=== PATIENT | female | born 1995 | race American Indian/Alaskan Native ===

== ENCOUNTER 2018-11-26 | Emergency (ER) | payer SELFPAY ==
[2018-11-26 00:56] LABS: Basophils # (Auto) 0.1 K/mm3 (0.0-0.1); Eosinophils # (Auto) 0.1 K/mm3 (0.0-0.4); Eosinophils % (Auto) 1.7 % (0.0-4.3); Hematocrit 35.7 % (30.3-42.9); Hemoglobin 11.9 gm/dl (10.1-14.3); Lymphocytes # (Auto) 2.6 K/mm3 (1.2-5.4); Lymphocytes % (Auto) 37.4 % (13.4-35.0); Mean Corpuscular HGB Conc 33 % (30-34); Mean Corpuscular Volume 80 fl (79-97); Monocytes # (Auto) 0.9 K/mm3 (0.0-0.8); Monocytes % (Auto) 13.6 % (0.0-7.3); Platelet Count 289 K/mm3 (140-440); Red Blood Count 4.49 M/mm3 (3.65-5.03); Red Cell Distribution Width 14.6 % (13.2-15.2)
[2018-11-26 01:02] LABS: Bilirubin,Urine NEG (Negative); Blood,Urine LG (Negative); Color,Urine Yellow (Yellow); Mucus,Urine 3+ /HPF
[2018-11-26 01:07] LABS: Albumin 4.5 g/dL (3.9-5); BUN/Creatinine Ratio 11; Blood Urea Nitrogen 10 mg/dL (7-17); Calcium 9.4 mg/dL (8.4-10.2); Hemolysis Index 8
[2018-11-26 01:13] LABS: Alanine Aminotransferase < 5 units/L (7-56)
[2018-11-26] MEDS ORDERED: REGLAN IV ONE (02:24)
[2018-11-26] MEDS ORDERED: TORADOL IV ONE (02:24)
[2018-11-26] MEDS ORDERED: BENADRYL IV ONE (02:24)
--- NOTE | 2018-11-26 02:29 | Emergency Department Report ---
ED Headache HPI - General Chief Complaint: Headache Stated Complaint: MIGRAINE, ABD PAIN, NAUSEA Time Seen by Provider: 11/26/18 02:23 - History of Present Illness Initial Comments: 23-year-old -[place] female presents to the emergency room for headache. Patient states that she has had a headache since 3 PM today. Patient reports light sensitivity and nausea and vomiting. Patient reports that she took Aleve approximately 3 PM without relief. She also complains of abdominal sharp pain. Patient reports her last menstrual. Was 10/18/2018. Timing/Duration: 4-6 hours, increasing Quality: moderate Recent Head Trauma: no recent headache/trauma Modifying Factors: improves with: exposure to light Associated Symptoms: nausea/vomiting Allergies/Adverse Reactions: Allergies No Known Allergies Allergy (Verified 11/26/18 00:06) Home Medications: Ambulatory Orders Butalb/Acetaminophen/Caffeine [Fioricet 50-300-40 mg CAP] 1 cap PO Q8HR PRN #12 cap 11/26/18 ED Review of Systems ROS: Stated complaint: MIGRAINE, ABD PAIN, NAUSEA Other details as noted in HPI Comment: All other systems reviewed and negative ED Past Medical Hx - Past Medical History Previous Medical History?: Yes Hx Headaches / Migraines: Yes Additional medical history: cyst to breast - Surgical History Past Surgical History?: Yes Hx Breast Surgery: Yes (biospy and tumor removal) - Social History Smoking Status: Never Smoker Substance Use Type: None - Medications Home Medications: Home Medications Medication Instructions Recorded Confirmed Last Taken Type Butalb/Acetaminophen/Caffeine 1 cap PO Q8HR PRN #12 cap 11/26/18 Unknown Rx [Fioricet 50-300-40 mg CAP] ED Physical Exam - General Limitations: No Limitations General appearance: alert, in no apparent distress - Head Head exam: Present: atraumatic, normocephalic - Eye Eye exam: Present: normal appearance - ENT ENT exam: Present: mucous membranes moist - Neck Neck exam: Present: normal inspection - Back Exam Back exam: Present: normal inspection - Neurological Exam Neurological exam: Present: alert, oriented X3, normal gait - Expanded Neurological Exam Expanded Patient oriented to: Present: person, place, time Speech: Present: fluid speech Cranial nerves: EOM's Intact: Normal, Gag Reflex: Normal, Tongue Deviation: Normal, Nystagmus: Normal, Facial Sensation: Normal, Facial Palsy with Forehead Movement: Normal, Facial Palsy without Forehead Movement: Normal Cerebellar function: Finger to Nose: Normal, Heel to Moreno: Normal, Romberg: Normal Upper motor neuron: Manuel Neglect: Normal Sensory exam: Upper Extremity Light Touch: Normal, Upper Extremity Pin Prick: Normal, Upper Extremity Temperature: Normal, UE 2 Point Discrimination: Normal, Lower Extremity Light Touch: Normal, Lower Extremity Pin Prick: Normal, Lower Extremity Temperature: Normal, LE 2 Point Discrimination: Normal Motor strength exam: RUE: 4, LUE: 4, RLE: 4, LLE: 4 - Psychiatric Psychiatric exam: Present: normal affect, normal mood - Skin Skin exam: Present: warm, dry, intact, normal color. Absent: rash ED Course Vital Signs 11/26/18 02:50 Respiratory 14 Rate - Reevaluation(s) Reevaluation #1: 11/26/18 04:08 Patient reports headache has improved. ED Medical Decision Making - Lab Data Result diagrams: 11/26/18 00:34 11/26/18 00:34 Critical care attestation.: If time is entered above; I have spent that time in minutes in the direct care of this critically ill patient, excluding procedure time. ED Disposition Clinical Impression: Migraine Qualifiers: Migraine type: unspecified Status migrainosus presence: without status migrainosus Intractability: not intractable Qualified Code(s): G43.909 - Stefan hughes, unspecified, not intractable, without status migrainosus Disposition: DC-01 TO HOME OR SELFCARE Is pt being admited?: No Does the pt Need Aspirin: No Condition: Stable Instructions: Migraine Headache (ED) Additional Instructions: Take migraine medication as needed. Is important free to follow up with the neurologist I have listed one below for your convenience. Prescriptions: Butalb/Acetaminophen/Caffeine [Fioricet 50-300-40 mg CAP] 1 cap PO Q8HR PRN #12 cap PRN Reason: Pain , Severe (7-10) Referrals: CAT MCCURDY MD [Primary Care Provider] - 3-5 Days DENNIS ALMANZAR MD [Referring] - 3-5 Days Forms: Work/School Release Form(ED), Accompanied Note
[2018-11-26 04:27] VITALS: BP 121/79
== END 2018-11-26 04:15 | disposition home or self-care (01) ==
LOC: ED
DX: G43.909 Migraine, unspecified, not intractable, without status migrainosus (principal); Z98.890 Other specified postprocedural states
CPT/HCPCS: 36415; 80053; 81001; 83690; 84703; 85025; 96374; 96375; 99283; J1200; J1885; J2765